=== PATIENT | female | born 2000 | race Caucasian/White ===

== ENCOUNTER 2020-08-25 12:23 | Inpatient (IN) | payer OTHER ==
--- NOTE | ~2020-08-25 | OR ---
[facility] [address], [place] [address] Draft DATE OF OPERATION: 08/26/2020 SURGEON: Aspen Stone DO PREOPERATIVE DIAGNOSES: 1. Term at 39 weeks gestation. 2. History of prior . POSTOPERATIVE DIAGNOSES: 1. Term at 39 weeks gestation. 2. History of prior . PROCEDURE PERFORMED: Repeat low transverse delivery. ANESTHESIA: Spinal. PATIENT FINANCIAL COORDINATOR: Britney Barcenas DO. ESTIMATED BLOOD LOSS: 500 mL. COMPLICATIONS: None. FINDINGS: Viable male with Apgars of 9 and 9, weighing 7 pounds 1 ounces, born via repeat low-transverse . Significant uterine window 6 cm x 8 cm with no overlying myometrium. Normal tubes and ovaries. Lower segment normal thickness. No adhesions noted. INDICATIONS: Ms. Boyle is a very pleasant 20-year-old G2, P1 female, who presents to Labor and Delivery for scheduled repeat low transverse delivery. was complicated by history of prior , history of epilepsy, noncompliant on antiepileptics. The patient was consented for repeat low transverse delivery. Risks, benefits, and alternatives were discussed in detail with the patient. The patient understands and wished to proceed with the procedure. PATIENT NAME: SAWYER BOYLE OPERATIVE REPORT DATE OF : [birth year] REPORT #: [id number] PHYSICIAN: ASPEN STONE DO PCP: NO PRIMARY CARE PHYSICIAN REPORT IS CONFIDENTIAL AND NOT TO BE RELEASED WITHOUT AUTHORIZATION [facility] [address], [place] [address] Draft DESCRIPTION OF PROCEDURE: The patient was taken to the operating room where a time-out was performed to confirm correct patient and correct procedure. Spinal anesthetic was adequately established and the patient was prepped and draped in the supine position with a bump under the right hip. A Mclain catheter was inserted and ICPs were on and running. Patient received 2 g of Ancef per SCIP protocol and heparin was not indicated. A time-out was performed to confirm correct patient and correct procedure. A Pfannenstiel skin incision was then made after confirming spinal anesthetic to be adequate. Incision was then carried down to the fascia and the fascia was nicked in the midline and extended bilaterally using curved Owens scissors. Fascia was grasped with Tori's, elevated, and the underlying rectus muscle dissected sharply and bluntly. Rectus muscles were easily divided in the midline using blunt dissection and the peritoneum was entered bluntly. Peritoneal incision was extended cephalad caudad using sharp and blunt dissection. No significant adhesions were noted. However, a large uterine window 8 cm wide by 6 cm tall was noted with clear amniotic fluid easily seen through the window. Joni self retractor was placed and hysterotomy was then performed through the overlying membranes from the uterine window. Clear amniotic fluid was noted. was noted to be in the occiput posterior position and the head was flexed and delivered into the maternal abdomen without difficulty with the assistance of fundal pressure. No nuchal cord was noted and the remainder of the delivered without difficulty. The was vigorous and cried and the cord was doubly clamped and cut and the handed to the waiting pediatric team for further care. Cord blood was obtained for routine analysis. The placenta was then manually expressed intact with a centrally inserted three-vessel cord. Bleeding was scant and Pitocin was given per protocol. Uterine cavity was cleared of any remaining products of conception or clot and attention was turned to the hysterotomy repair. The lower segment was carefully examined and found to be normal thickness. The hysterotomy was carefully repaired in two layers using 0 Vicryl with the 1st layer running locked and the 2nd layer in an imbricating nonlocked manner. Excellent reapproximation of the lower segment was appreciated with excellent hemostasis. The pelvis was irrigated and found to be hemostatic. The tubes and ovaries were examined and found to be normal. The Joni self retractor was removed. ACell sheet was applied to the lower uterine segment after confirming hemostasis. Peritoneum was then reapproximated using 2-0 Vicryl in a running nonlocked manner. Rectus was then reapproximated loosely in the midline with interrupted sutures of 0 Vicryl. Rectus was examined and found to be hemostatic after judicious use of Bovie electrocautery. ACell powder was applied to the rectus sheath and again confirmed to be hemostatic. Fascia was reapproximated using 0 Vicryl in a running nonlocked manner. Subcu was reapproximated using 2-0 Vicryl in a running nonlocked manner after ensuring hemostasis. Skin was then reapproximated using 2-0 Quill in a subcuticular stitch. The uterus was Crede'd for scant amount of bleeding and the patient was taken to PACU in good and stable condition. PATIENT NAME: SAWYER BOYLE OPERATIVE REPORT DATE OF : [birth year] REPORT #: [id number] PHYSICIAN: ASPEN STONE DO PCP: NO PRIMARY CARE PHYSICIAN REPORT IS CONFIDENTIAL AND NOT TO BE RELEASED WITHOUT AUTHORIZATION [address] [address] Draft Sponge, needle and instrument count was correct x2 at the end of the procedure. Dr. Barcenas was present and participated in all portions of procedure. Aspen Stone DO JDW/ALAYNA /[id number] Copies: ~ PATIENT NAME: SAWYER BOYLE OPERATIVE REPORT DATE OF : [birth year] REPORT #: [id number] PHYSICIAN: ASPEN STONE DO PCP: NO PRIMARY CARE PHYSICIAN REPORT IS CONFIDENTIAL AND NOT TO BE RELEASED WITHOUT AUTHORIZATION
[~2020-08-25 12:23] MED LIST: DEPO-MEDRO20 MG/1 ML INJ; GUMMI BEAR MUL1 EACH PO; HYDROXYZINE HCL25 MG PO; IMPLANT FOR BC; MIRTAZAPINE15 MG PO; NAPROSYN500 MG PO; TYLENOL325 MG PO
--- NOTE | 2020-08-26 12:59 | PR ---
[facility] [address] [place], [place] [address] Signed PP Progress Notes Datetime Report Generated by CPN: 08/26/2020 12:59 SUBJECTIVE: [id number] Pain: Within Normal Limits Nausea/Vomiting: Denies Flatus: No Bowel Movement: No Vital Signs: [id number] Vital Signs: Reviewed Cardiovascular: Normal Respiratory: Normal Abdomen/Uterus: Normal Lochia: Normal Vulva/Perineum: Not Done Breasts: Not Done CVA Tenderness: Normal Extremities: Normal Incision: Abnormal Exam Comments: Small amount of oozing from surgical incision in midportion of RIGHT side of incision. No hematoma/seroma. Very slight ooze from skin edge w/ pressure. Steri strips removed, incision cleaned, and pressure held. No additional oozing noted. New steri strips and bandaging replaced. IMPRESSION/PLAN/PROCEDURES: [id number] Impression: Normal Progression Progress Notes: Pt w/ small amount of skin oozing at incision. No hemorrhage, hematoma, or other concerning findings. Bandaging replaced and abdominal binder placed to provide some incisional pressure. If additional oozing noted, would place few sugical hina. Pt understands and agrees. Signing Physician: Aspen Stone DO Copies: ~ *Electronically Signed* 08/26/20 3974 ASPEN STONE DO PATIENT NAME: SAWYER BOYLE PROGRESS NOTE DATE OF : [birth year] PHYSICIAN: ASPEN STONE DO RPT #: [id number] REPORT IS CONFIDENTIAL AND NOT TO BE RELEASED WITHOUT AUTHORIZATION
--- NOTE | 2020-08-27 08:10 | PR ---
[facility] [address] [facility] [place], [place] [address] Signed PP Progress Notes Datetime Report Generated by CPN: 08/27/2020 08:10 SUBJECTIVE: [id number] Pain: Within Normal Limits Nausea/Vomiting: Present Flatus: Yes Bowel Movement: No Vital Signs: [id number] Vital Signs: Reviewed; Within Normal Limits Cardiovascular: Normal Respiratory: Normal Abdomen/Uterus: Normal Lochia: Not Done Vulva/Perineum: Not Done Breasts: Not Done CVA Tenderness: Normal Extremities: Normal Incision: Normal Exam Comments: Fundus firm U-2 nontender. Incision bandaged / clean / dry. Mclain cath in place IMPRESSION/PLAN/PROCEDURES: [id number] Impression: Normal Progression Plan: Continue Present Management Progress Notes: Pt seen and examined. Doing well. Ambulating and tolerating full diet. Mclain cath in place. Mild nausea with one episode of emesis yesterday. No fevers/chills. Pain and lochia minimal. No concerns. Anticipate d/c home tomorrow. Hgb 10.0 Signing Physician: Aspen Stone DO Copies: ~ *Electronically Signed* 08/27/20809 ASPEN STONE DO PATIENT NAME: SAWYER BOYLE PROGRESS NOTE DATE OF : 98 PHYSICIAN: ASPEN STONE DO RPT #: [id number] REPORT IS CONFIDENTIAL AND NOT TO BE RELEASED WITHOUT AUTHORIZATION
--- NOTE | 2020-08-28 09:15 | PR ---
[facility] [address] [place], [place] [address] Signed PP Progress Notes Datetime Report Generated by JULIUS: 08/28/2020 09:15 SUBJECTIVE: [id number] Pain: Within Normal Limits Nausea/Vomiting: Denies Flatus: Yes Bowel Movement: Yes Vital Signs: [id number] Vital Signs: Reviewed; Within Normal Limits Cardiovascular: Normal Respiratory: Normal Abdomen/Uterus: Normal Lochia: Normal Vulva/Perineum: Not Done Breasts: Not Done CVA Tenderness: Normal Extremities: Normal Incision: Normal Progress: Not Applicable Exam Comments: Fundus firm U-2 nontender. Incision healing well w/ dry bandage in place IMPRESSION/PLAN/PROCEDURES: [id number] Impression: Normal Progression Plan: Discharge Progress Notes: Pt seen and examined. Doing well. Ambulating, voiding, and tolerating full diet. Pain and lochia minimal. Baby given for adoption and pt is having some engorgment. Desires IUD for pp contraception. No fevers/chills or other concerns. Desires d/c home today. Reviewed d/c instructions in detail. Reviewed hx of seizures noncompliant on medications. Pt feels strongly that her seizures are anxiety induced and we reviewed stragies to reduce anxiety and stress . Last seizure 2018. Encouraged pt to establish w/ PCP [facility] and pt desires to establish w/ Dr. Paz; we will help coordinate that at her 2 wk pp visit. Reviewed seizure precautions and indications to present the ED. All questions answered and pt agrees with plan of care. Signing Physician: Aspen Stone DO Copies: *Electronically Signed* 08/28/20914 ASPEN STONE DO PATIENT NAME: SAWYER BOYLE BEATRIZ PROGRESS NOTE DATE OF : 98 PHYSICIAN: ASPEN STONE DO RPT #: [id number] REPORT IS CONFIDENTIAL AND NOT TO BE RELEASED WITHOUT AUTHORIZATION [address] [place] [address] Signed ~ *Electronically Signed* 08/28/20914 ASPEN STONE DO PATIENT NAME: SAWYER BOYLE BEATRIZ PROGRESS NOTE DATE OF : 98 PHYSICIAN: ASPEN STONE DO RPT #: [id number] REPORT IS CONFIDENTIAL AND NOT TO BE RELEASED WITHOUT AUTHORIZATION
== END 2020-08-28 10:00 | disposition home or self-care (01) | DRG 787 ==
LOC: FBC 08-26 04:59 → MS 08-26 04:59 → FBC 08-26 06:45
PROVIDERS: ADMIT Obstetrics & Gynecology; ATTEND Obstetrics & Gynecology
PROC: 10D00Z1 Extraction of Products of Conception, Low, Open Approach (ICD-10-PCS; principal; 2020-08-26 06:45)
DX: O34.211 Maternal care for low transverse scar from previous cesarean delivery (principal); O99.354 Diseases of the nervous system complicating childbirth; O99.324 Drug use complicating childbirth; N85.8 Other specified noninflammatory disorders of uterus; Z3A.39 39 weeks gestation of pregnancy; Z37.0 Single live birth; G40.909 Epilepsy, unspecified, not intractable, without status epilepticus; F12.90 Cannabis use, unspecified, uncomplicated; O99.344 Other mental disorders complicating childbirth; F41.9 Anxiety disorder, unspecified; O99.02 Anemia complicating childbirth; D64.9 Anemia, unspecified; O99.892 Other specified diseases and conditions complicating childbirth; Q52.8 Other specified congenital malformations of female genitalia; Z91.14 Patient's other noncompliance with medication regimen
CPT/HCPCS: 01961; 36415; 85027; A9270; C9803; J0690; J1200; J1885; J2001; J2274; J2405; J2550; J2590; J3010; J7121; U0003

== ENCOUNTER 2021-03-12 09:12 | Inpatient (IN) | payer OTHER ==
[~2021-03-12] VITALS: Ht 157.5 cm; Wt 50.8 kg
--- NOTE | 2021-03-12 19:04 | EKG ---
[facility] [address] [facility] [place] [address] Signed Sinus tachycardia with short AL Nonspecific ST abnormality Abnormal ECG No previous ECGs available Confirmed by CHANEL VILLAGOMEZ MD ([id number]) on 03/12/2021 7:04:25 PM Electronically Signed By: CHANEL VILLAGOMEZ MD 03/12/21 1904 PATIENT NAME: SAWYER BOYLE BEATRIZ Electrocardiogram DATE OF : 98 PHYSICIAN: CHANEL VILLAGOMEZ MD REPORT #: [id number] REPORT IS CONFIDENTIAL AND NOT TO BE RELEASED WITHOUT AUTHORIZATION
--- NOTE | 2021-03-14 19:53 | EKG ---
[facility] [address] [facility] [place] [address] Signed Sinus bradycardia Otherwise normal ECG When compared with ECG of 12-MAR-2021 09:21, Vent. rate has decreased BY [address] no longer depressed in Inferior leads ST no longer depressed in Anterior leads ST elevation now present in Lateral leads Confirmed by ASHLEE KELLER DO ([id number]) on 03/14/2021 7:53:29 PM Electronically Signed By: ASHLEE KELLER DO 03/14/211952 PATIENT NAME: SAWYER BOYLE BEATRIZ Electrocardiogram DATE OF : 98 PHYSICIAN: ASHLEE KELLER DO REPORT #: [id number] REPORT IS CONFIDENTIAL AND NOT TO BE RELEASED WITHOUT AUTHORIZATION
== END 2021-03-13 13:45 | disposition home or self-care (01) | DRG 917 ==
LOC: ED 09:12 → CCU 13:50
PROVIDERS: ADMIT Internal Medicine; ATTEND Internal Medicine
DX: T39.1X2A Poisoning by 4-Aminophenol derivatives, intentional self-harm, initial encounter (principal); R65.11 Systemic inflammatory response syndrome (SIRS) of non-infectious origin with acute organ dysfunction; E87.2 Acidosis; Z20.822 Contact with and (suspected) exposure to COVID-19; F12.90 Cannabis use, unspecified, uncomplicated; F39 Unspecified mood [affective] disorder; F43.10 Post-traumatic stress disorder, unspecified; F41.9 Anxiety disorder, unspecified; Z79.899 Other long term (current) drug therapy; Z91.5 Personal history of self-harm
CPT/HCPCS: 51702; 71045; 80048; 80053; 81001; 82553; 83605; 83735; 84443; 84703; 85025; 85610; 93005; 93010; 99285-25; C9113; C9803; G0480; J0132; J2060; J2310; J2405; J3475; J3480; J7030; J7060; J7070; U0003